=== PATIENT | female | born 1945 | race Caucasian/White ===

== ENCOUNTER 2023-04-04 09:14 | Emergency (ER) | payer BC ==
[~2023-04-04] VITALS: Ht 154.9 cm; Wt 70.3 kg
[~2023-04-04 09:14] MED LIST: FLEXERIL10 MG PO; IBU800 M1 PO; MEDROL DOSEPAK4 MG PO; NKHM
[2023-04-04] MEDS ORDERED: CEPHALEXIN500 M1 PO (09:38)
== END 2023-04-04 10:20 | disposition home or self-care (01) ==
LOC: ED 09:14
DX: S61.512A Laceration without foreign body of left wrist, initial encounter (principal); M25.511 Pain in right shoulder; Z90.710 Acquired absence of both cervix and uterus; W26.8XXA Contact with other sharp object(s), not elsewhere classified, initial encounter; Y93.89 Activity, other specified; Y92.009 Unspecified place in unspecified non-institutional (private) residence as the place of occurrence of the external cause; Y99.8 Other external cause status